=== PATIENT | female | born 1945 | race Caucasian/White ===

== ENCOUNTER 2018-03-18 12:51 | Emergency (ER) | payer MEDICARE, OTHER ==
[2018-03-18 14:00] LABS: Basophils % (A) 0 %; Eosinophils # (A) 0.1 k/uL (0-0.7); Eosinophils % (A) 1 %; HCT 37.8 % (34.0-46.0); HGB 12.2 gm/dL (11.4-16.0); Lymphocytes # (A) 1.3 k/uL (1.0-4.8); Lymphocytes % (A) 13 %; MCH 30.1 pg (25.0-35.0); MCHC 32.3 g/dL (31.0-37.0); MCV 93.2 fL (80.0-100.0); Mean Platelet Volume 6.9; Monocytes # (A) 0.4 k/uL (0-1.0); Monocytes % (A) 4 %; Neutrophils # (A) 7.8 k/uL (1.3-7.7); Neutrophils % (A) 80 %; Platelet Count 194 k/uL (150-450); RBC 4.06 m/uL (3.80-5.40); RDW 13.5 % (11.5-15.5); WBC 9.8 k/uL (3.8-10.6)
--- NOTE | 2018-03-18 14:04 | ED ---
General Adult HPI - General Chief complaint: Extremity Problem,Nontraumatic Stated complaint: lt leg swelling/pain Time Seen by Provider: 03/18/18 13:17 Source: patient, RN notes reviewed, old records reviewed Mode of arrival: ambulatory Limitations: no limitations - History of Present Illness Initial comments: 73-year-old female presenting for evaluation of pain and swelling in her left leg. Patient noted the swelling over the past 24 hours. She has no history DVT or PE. Denies fever or chills. Patient denies any trauma. Pain is from the calf to the upper thigh. - Related Data Home Medications Medication Instructions Recorded Confirmed [id number] 3 tab PO QAM 03/18/18 03/18/18 [Excedrin] Atorvastatin Calcium [Lipitor] 20 mg PO HS 03/18/18 03/18/18 Cholecalciferol [Vitamin D3] 1,000 unit PO DAILY 03/18/18 03/18/18 Cranberry Fruit Extract [Cranberry] 500 mg PO DAILY 03/18/18 03/18/18 Lisinopril [Zestril] 10 mg PO HS 03/18/18 03/18/18 Magnesium 200 mg PO DAILY 03/18/18 03/18/18 Multivitamins, Thera [Multivitamin 1 tab PO DAILY 03/18/18 03/18/18 (formulary)] Naproxen Sodium [Aleve] 220 mg PO DAILY 03/18/18 03/18/18 Sinus Medicine (Unknown Otc) 1 tab PO QAM 03/18/18 03/18/18 amLODIPine [Norvasc] 5 mg PO HS 03/18/18 03/18/18 Allergies Allergy/AdvReac Type Severity Reaction Status Date / Time No Known Allergies Allergy Verified 03/18/18 13:53 Review of Systems ROS Statement: Those systems with pertinent positive or pertinent negative responses have been documented in the HPI. ROS Other: All systems not noted in ROS Statement are negative. Past Medical History Past Medical History: Hyperlipidemia, Hypertension, Osteoarthritis (OA) History of Any Multi-Drug Resistant Organisms: None Reported Past Surgical History: Adenoidectomy, Appendectomy, Breast Surgery, Tonsillectomy, Tubal Ligation Past Psychological History: No Psychological Hx Reported Smoking Status: Former smoker Past Alcohol Use History: Rare Past Drug Use History: None Reported General Exam Limitations: no limitations General appearance: alert, in no apparent distress Head exam: Present: atraumatic, normocephalic Eye exam: Present: normal appearance, PERRL ENT exam: Present: normal exam Neck exam: Present: normal inspection. Absent: tenderness, meningismus Respiratory exam: Present: normal lung sounds bilaterally. Absent: respiratory distress, wheezes Cardiovascular Exam: Present: regular rate, normal rhythm GI/Abdominal exam: Present: soft. Absent: distended, tenderness Extremities exam: Present: tenderness (Swelling of the left lower extremity, ankle to hip, distal pulses intact.), pedal edema, calf tenderness, other Neurological exam: Present: alert, oriented X3, CN II-XII intact. Absent: motor sensory deficit Psychiatric exam: Present: normal affect, normal mood Skin exam: Present: warm, dry, intact. Absent: cyanosis, diaphoretic Course Vital Signs 03/18/18 03/18/18 13:09 14:40 Temperature 98.5 F Pulse Rate 88 77 Respiratory 20 18 Rate Blood Pressure 130/82 144/77 O2 Sat by Pulse 97 97 Oximetry - Reevaluation(s) Reevaluation #1: 03/18/18 16:[address] Perez from vascular surgery, recommended discussing case with, called for possible intervention. EKG Findings - EKG Comments: EKG Findings:: EKG: Normal sinus rhythm, no ST segment elevation or depression, rate of 78, AL interval 170, QRS duration 98, QTC 428 Medical Decision Making - Medical Decision Making 73-year-old female presenting with 24-hour history of left leg pain and swelling. Basic laboratory studies are obtained which are normal, normal CBC, normal CMP, normal lactic acid. Patient has ultrasound of the leg which is negative for DVT. No remains high clinical suspicion for occlusive process, CT of the abdomen and pelvis is obtained which does show DVT in the common and external iliac. Case discussed with vascular surgery on-call, recommended transfer for further evaluation treatment, case discussed with alena Delaney P[place], patient will be sent for thrombolysis. Case discussed with ER physician at [facility] Dr. Baird regarding transfer. - Lab Data Result diagrams: 03/18/18 13:37 03/18/18 13:37 Lab Results 03/18/18 03/18/18 03/18/18 Range/Units 13:37 13:37 13:37 WBC 9.8 (3.8-10.6) k/uL RBC 4.06 (3.80-5.40) m/uL Hgb 12.2 (11.4-16.0) gm/dL Hct 37.8 (34.0-46.0) % MCV 93.2 (80.0-100.0) fL MCH 30.1 (25.0-35.0) pg MCHC 32.3 (31.0-37.0) g/dL RDW 13.5 (11.5-15.5) % Plt Count 194 (150-450) k/uL Neutrophils % 80 % Lymphocytes % 13 % Monocytes % 4 % Eosinophils % 1 % Basophils % 0 % Neutrophils # 7.8 H (1.3-7.7) k/uL Lymphocytes # 1.3 (1.0-4.8) k/uL Monocytes # 0.4 (0-1.0) k/uL Eosinophils # 0.1 (0-0.7) k/uL Basophils # 0.0 (0-0.2) k/uL PT 9.5 (9.0-12.0) sec INR 1.0 (<1.2) APTT 22.5 (22.0-30.0) sec Sodium 140 (137-145) mmol/L Potassium 5.0 (3.5-5.1) mmol/L Chloride 105 (98-107) mmol/L Carbon Dioxide 24 (22-30) mmol/L Anion Gap 11 mmol/L BUN 13 (7-17) mg/dL Creatinine 0.75 (0.52-1.04) mg/dL Est GFR (CKD-EPI)AfAm >90 (>60 ml/min/1.73 sqM) Est GFR (CKD-EPI)NonAf 81 (>60 ml/min/1.73 sqM) Glucose 99 (74-99) mg/dL Plasma Lactic Acid Kye (0.7-2.0) mmol/L Calcium 9.8 (8.4-10.2) mg/dL Total Bilirubin 1.0 (0.2-1.3) mg/dL AST 27 (14-36) U/L ALT 15 (9-52) U/L Alkaline Phosphatase 95 (38-126) U/L Troponin I (0.000-0.034) ng/mL NT-Pro-B Natriuret Pep pg/mL Total Protein 7.9 (6.3-8.2) g/dL Albumin 4.4 (3.5-5.0) g/dL 03/18/18 03/18/18 03/18/18 Range/Units 13:37 13:37 15:30 WBC (3.8-10.6) k/uL RBC (3.80-5.40) m/uL Hgb (11.4-16.0) gm/dL Hct (34.0-46.0) % MCV (80.0-100.0) fL MCH (25.0-35.0) pg MCHC (31.0-37.0) g/dL RDW (11.5-15.5) % Plt Count (150-450) k/uL Neutrophils % % Lymphocytes % % Monocytes % % Eosinophils % % Basophils % % Neutrophils # (1.3-7.7) k/uL Lymphocytes # (1.0-4.8) k/uL Monocytes # (0-1.0) k/uL Eosinophils # (0-0.7) k/uL Basophils # (0-0.2) k/uL PT (9.0-12.0) sec INR (<1.2) APTT (22.0-30.0) sec Sodium (137-145) mmol/L Potassium (3.5-5.1) mmol/L Chloride (98-107) mmol/L Carbon Dioxide (22-30) mmol/L Anion Gap mmol/L BUN (7-17) mg/dL Creatinine (0.52-1.04) mg/dL Est GFR (CKD-EPI)AfAm (>60 ml/min/1.73 sqM) Est GFR (CKD-EPI)NonAf (>60 ml/min/1.73 sqM) Glucose (74-99) mg/dL Plasma Lactic Acid Kye 1.0 (0.7-2.0) mmol/L Calcium (8.4-10.2) mg/dL Total Bilirubin (0.2-1.3) mg/dL AST (14-36) U/L ALT (9-52) U/L Alkaline Phosphatase (38-126) U/L Troponin I <0.012 (0.000-0.034) ng/mL NT-Pro-B Natriuret Pep 69 pg/mL Total Protein (6.3-8.2) g/dL Albumin (3.5-5.0) g/dL Critical Care Time Critical Care Time: Yes Total Critical Care Time: 35 Disposition Clinical Impression: Deep vein thrombosis of lower extremity Disposition: OTHER INSTITUTION NOT DEFINED Condition: Stable Is patient prescribed a controlled substance at d/c from ED?: No Referrals: Jayy Ohara MD [Primary Care Provider] - 1-2 days Time of Disposition: 16:05 - Out of Hospital Transfer - Req. Specs Out of Hospital Transfer - Requested Specifics: Other Emergency Center ( Transfer to [facility])
[2018-03-18 14:06] LABS: Albumin 4.4 g/dL (3.5-5.0); Anion Gap 11 mmol/L; Blood Urea Nitrogen 13 mg/dL (7-17); Calcium 9.8 mg/dL (8.4-10.2); Carbon Dioxide 24 mmol/L (22-30); Chloride 105 mmol/L (98-107); Glucose 99 mg/dL (74-99); Sodium 140 mmol/L (137-145); Total Protein 7.9 g/dL (6.3-8.2)
[2018-03-18 14:09] LABS: ALT 15 U/L (9-52); AST 27 U/L (14-36); Alkaline Phosphatase 95 U/L (38-126)
[2018-03-18 14:14] LABS: Partial Thromboplastin Time 22.5 sec (22.0-30.0); Prothrombin Time 9.5 sec (9.0-12.0)
[2018-03-18 14:40] VITALS: RESP 18
--- NOTE | 2018-03-18 14:43 | US ---
EXAMINATION TYPE: US venous doppler duplex LE LT DATE OF EXAM: 03/18/2018 2:12 PM COMPARISON: NONE CLINICAL HISTORY: Pain. Swelling left leg SIDE PERFORMED: Left TECHNIQUE: The lower extremity deep venous system is examined utilizing real time linear array sonog marly with graded compression, doppler sonography and color-flow sonography. VESSELS IMAGED: External Iliac Vein (EIV) Common Femoral Vein Deep Femoral Vein Greater Saphenous Vein * Femoral Vein Popliteal Vein Small Saphenous Vein * Proximal Calf Veins (* superficial vessels) Left Leg: Appears negative for DVT. Rouleaux flow visualized IMPRESSION: 1. No diagnostic evidence of DVT.
[2018-03-18] MEDS ORDERED: HEPARIN SODIUM,PORCINE 5,000 UNIT/ML 1 ML VIAL IV ONE (15:43)
[2018-03-18] MEDS ORDERED: HEPARIN SODIUM,PORCINE 5,000 UNIT/ML 1 ML VIAL IV PRN (15:43)
[2018-03-18] MEDS ORDERED: HEPARIN SOD,PORK IN 0.45% NACL 25,000 UNIT in 0.45% NACL 1 500ML.BAG IV SCH (15:45)
--- NOTE | 2018-03-18 15:48 | CT ---
EXAMINATION TYPE: CT abdomen pelvis w con DATE OF EXAM: 03/18/2018 HISTORY: Left leg swelling. CT DLP: 1088.5mGycm Automated Exposure Control for Dose Reduction was Utilized. CONTRAST: CT scan of the abdomen and pelvis is performed with IV Contrast, patient injected with 100 mL of Isov ue 300. COMPARISON: None. FINDINGS: LUNG BASES: No significant abnormality is appreciated. LIVER/GB: Gallbladder is elongated although not hydropic. This measures 9.0 cm. No cholelithiasis is seen. Within the liver there are 4 subcentimeter left hepatic hypoattenuated lesions that are too sma ll to accurately characterize and at least 2 within the right hepatic lobe. No intrahepatic biliary d uctal dilatation. PANCREAS: No significant abnormality is seen. SPLEEN: No significant abnormality is seen. ADRENALS: No significant abnormality is seen. KIDNEYS: Renal sinus cyst is seen on the right. Otherwise the kidneys are unremarkable. No hydronephr osis. BOWEL: No significant abnormality is seen. UTERUS/ADNEXA: No gross abnormality seen. LYMPH NODES: No greater than 1cm abdominal or pelvic lymph nodes are appreciated. OSSEOUS STRUCTURES: No significant abnormality is seen. OTHER: Fascial thickening and scant free fluid along the left inguinal region is seen. Additionally t here is enlargement of the left external iliac vein and some high density in the femoral vein with en largement of the left common iliac vein. There is very minimal compression of the left external iliac vein via the right common iliac artery. Therefore May Thurner syndrome is a possibility although unl ikely. There is fat stranding surrounding the left common iliac vein seen from axial images [address] through images 83. Linear high density is seen on coronal images 40 through 46 within the left ext ernal iliac vein and femoral vein. There is an infrarenal abdominal aortic aneurysm measuring 3.1 x 2.8 x 3.3 cm without extent into the common iliac arteries. Within this aneurysm there is moderate calcific and noncalcific atheromatous plaquing. Within this atheromatous plaquing there is focal ulceration and coronal image 43 (penetrati ng atheromatous ulcer). Is present on axial image 44. IMPRESSION: 1. Findings most compatible with deep venous thrombosis of the left common iliac and external iliac v ein above the level of the previously performed ultrasound. Stranding inflammatory change may be on t he basis of deep venous thrombosis or less likely vasculitis. There is high density within the vein t hat may represent blood flow surrounding the clot or less likely foreign body. Correlate with any rec ent venous procedure. 2. Infrarenal abdominal aortic aneurysm with penetrating atheromatous ulcer. Stranding within the left groin and small amount of free fluid of unknown etiology. Possible recent i nflammatory change such as recent colitis or recent ovarian cyst rupture could produce this finding. Some density is seen within the left common iliac vein and left femoral vein. Correlate with ultrasou nd.
[2018-03-18 17:20] VITALS: BP 152/80; PULSE 80; TEMP 97.7
== END 2018-03-18 17:20 | disposition short-term general hospital (02) ==
LOC: EC 12:51
DX: I82.422 Acute embolism and thrombosis of left iliac vein (principal); E78.5 Hyperlipidemia, unspecified; I10 Essential (primary) hypertension; M19.90 Unspecified osteoarthritis, unspecified site; Z87.891 Personal history of nicotine dependence; Z79.1 Long term (current) use of non-steroidal anti-inflammatories (NSAID); Z79.82 Long term (current) use of aspirin; Z79.899 Other long term (current) drug therapy
CPT/HCPCS: 36415; 93005; 83880; 80053; 83605; 84484; 85025; 85610; 85730; 87040; 93971; 74177; 99291; 96365; 96376; J1644 ×2; Q9967

== ENCOUNTER → 2020-04-13 | Outpatient (CLI) | payer MEDICARE, OTHER ==
--- NOTE | 2020-04-16 09:32 | MM ---
Reason for exam: screening (asymptomatic). Last mammogram was performed 14 years and 7 months ago. History: Patient is postmenopausal. Family history of premenopausal breast cancer in sister. Excisional biopsy of the right breast, 1975. Excisional biopsy of the left breast, 1974. Took estrogen for 6 months beginning at age 56. Physical Findings: A clinical breast exam by your physician is recommended on an annual basis and results should be correlated with mammographic findings. MG Screening Mammo w CAD Bilateral CC and MLO view(s) were taken. Prior study comparison: March 20, 2017, mammogram, performed at [facility]. The breast tissue is extremely dense which could obscure a lesion on mammography. Benign calcifications. No significant changes when compared with prior studies. ASSESSMENT: Benign, BI-RAD 2 RECOMMENDATION: Routine screening mammogram of both breasts in 1 year.
== END | disposition home or self-care (01) ==
LOC: RADMAMWWP 10:40
PROVIDERS: ATTEND Family Medicine
DX: Z12.31 Encounter for screening mammogram for malignant neoplasm of breast (principal)
CPT/HCPCS: 77067

== ENCOUNTER 2020-05-29 10:57 | Emergency (ER) | payer MEDICARE, OTHER ==
[2020-05-29 11:04] VITALS: RESP 18
[2020-05-29] MEDS ORDERED: SODIUM CHLORIDE 0.9% 500 ML 500 ML IV ONE (11:17)
--- NOTE | 2020-05-29 11:25 | ED ---
Lower Extremity Injury HPI - General Chief Complaint: Extremity Injury, Lower Stated Complaint: groin pain Time Seen by Provider: 05/29/20 11:04 Source: patient Mode of arrival: ambulatory Limitations: no limitations - History of Present Illness Initial Comments: 75yo female presenting today for cc of LLQ pain. pt states that she lifted something 5 days ago she states she noted no pain at that time. pt states that 2 days later she had LLQ cramping abdominal pain, she thought it was gas. pt states that there is an incision for her graft below the are of tenderness and patient states that she is concerned something could also be wrong with the graft. pt denies leg pain, back pain, nausea, vomiting, diarrhea, fevers, constipation. pt denies additional complaints. upon arrival patient appears well nontoxic - Related Data Home Medications Medication Instructions Recorded Confirmed [id number] [phone] 2 tab PO QAM 03/18/18 05/29/20 [Excedrin] Atorvastatin Calcium [Lipitor] 20 mg PO HS 03/18/18 05/29/20 Cholecalciferol [Vitamin D3] 1,000 unit PO DAILY 03/18/18 05/29/20 Magnesium 200 mg PO DAILY 03/18/18 05/29/20 Multivitamins, Thera [Multivitamin 1 tab PO DAILY 03/18/18 05/29/20 (formulary)] Sinus Medicine (Unknown Otc) 1 tab PO QAM 03/18/18 05/29/20 amLODIPine [Norvasc] 5 mg PO HS 03/18/18 05/29/20 lisinopriL [Zestril] 10 mg PO HS 03/18/18 05/29/20 HYDROcodone/APAP 5-325MG [[place] 1 tab PO BID PRN 05/29/20 05/29/20 5-325] diphenhydrAMINE [Benadryl] 50 mg PO DAILY 05/29/20 05/29/20 Previous Rx's Medication Instructions Recorded Amoxicillin/Potassium Clav 1 tab PO Q12HR 7 Days #14 tab 05/29/20 [Augmentin 875-125 Tablet] Allergies Allergy/AdvReac Type Severity Reaction Status Date / Time No Known Allergies Allergy Verified 05/29/20 12:01 Review of Systems ROS Statement: Those systems with pertinent positive or pertinent negative responses have been documented in the HPI. ROS Other: All systems not noted in ROS Statement are negative. Past Medical History Past Medical History: Hyperlipidemia, Hypertension, Osteoarthritis (OA) History of Any Multi-Drug Resistant Organisms: None Reported Past Surgical History: Adenoidectomy, Appendectomy, Breast Surgery, Tonsillectomy, Tubal Ligation Additional Past Surgical History / Comment(s): vein stent Past Psychological History: No Psychological Hx Reported Smoking Status: Former smoker Past Alcohol Use History: Rare Past Drug Use History: None Reported General Exam - General Exam Comments Initial Comments: General: The patient is awake and alert, in no distress Eye: Pupils are equal, round and reactive to light, extra-ocular movements are intact. No nystagmus. There is normal conjunctiva bilaterally. No signs of icterus. Cardiovascular: There is a regular rate and rhythm. No murmur, rub or gallop is appreciated. Respiratory: Lungs are clear to auscultation, respirations are non-labored, b reath sounds are equal. No wheezes, stridor, rales, or rhonchi. Gastrointestinal: No obvious ventral hernia near area of tenderness, there is no tenderness at scar line. no groin pain, there is LLQ abdominal pain to palpation,Soft, non-distended, non-tender RLQ or upper abdomen, abdomen without masses or organomegaly noted. There is no rebound or guarding present. Musculoskeletal: Normal ROM, no tenderness. Strength 5/5. Sensation intact. R adial and DP pulses equal bilaterally 2+. Neurological: A&O x 3. CN II-XII intact grossly, There are no obvious motor or sensory deficits. Coordination appears grossly intact. Speech is normal. Skin: Skin is warm and dry and no rashes or lesions are noted. Psychiatric: Cooperative, appropriate mood & affect, normal judgment. Limitations: no limitations Course Vital Signs 05/29/20 05/29/20 05/29/20 11:00 12:23 12:52 Temperature 98.8 F 98.1 F Pulse Rate 82 85 76 Respiratory 18 18 18 Rate Blood Pressure 171/82 131/92 137/73 O2 Sat by Pulse 98 96 97 Oximetry Medical Decision Making - Medical Decision Making Labs stable. afebrile. localized LLQ. described as cramping, concerned bcause near scar for vascular surgery. pt CT revealed an uncomplicated diverticulitis which was top ddx given age/location of pain/description. pt will be discharge with GI f/u and oral antibiotics. Dr. Berumen is agreeable to this care plan. - Lab Data Result diagrams: 05/29/20 11:23 05/29/20 11:23 Lab Results 05/29/20 05/29/20 05/29/20 Range/Units 11:23 11:23 11:27 WBC 9.1 (3.8-10.6) k/uL RBC 4.71 (3.80-5.40) m/uL Hgb 14.1 (11.4-16.0) gm/dL Hct 42.7 (34.0-46.0) % MCV 90.5 (80.0-100.0) fL MCH 30.0 (25.0-35.0) pg MCHC 33.1 (31.0-37.0) g/dL RDW 13.7 (11.5-15.5) % Plt Count 277 (150-450) k/uL MPV 6.7 Neutrophils % 67 % Lymphocytes % 26 % Monocytes % 4 % Eosinophils % 1 % Basophils % 0 % Neutrophils # 6.1 (1.3-7.7) k/uL Lymphocytes # 2.4 (1.0-4.8) k/uL Monocytes # 0.4 (0-1.0) k/uL Eosinophils # 0.1 (0-0.7) k/uL Basophils # 0.0 (0-0.2) k/uL Sodium 139 (137-145) mmol/L Potassium 5.0 (3.5-5.1) mmol/L Chloride 104 (98-107) mmol/L Carbon Dioxide 26 (22-30) mmol/L Anion Gap 9 mmol/L BUN 14 (7-17) mg/dL Creatinine 0.82 (0.52-1.04) mg/dL Est GFR (CKD-EPI)AfAm 82 (>60 ml/min/1.73 sqM) Est GFR (CKD-EPI)NonAf 71 (>60 ml/min/1.73 sqM) Glucose 100 H (74-99) mg/dL Calcium 10.1 (8.4-10.2) mg/dL Total Bilirubin 0.5 (0.2-1.3) mg/dL AST 21 (14-36) U/L ALT 25 (4-34) U/L Alkaline Phosphatase 105 (38-126) U/L Total Protein 8.1 (6.3-8.2) g/dL Albumin 4.5 (3.5-5.0) g/dL Amylase 59 (30-110) U/L Lipase 80 (23-300) U/L Urine Color Light Yellow Urine Appearance Clear (Clear) Urine pH 6.5 (5.0-8.0) Ur Specific [place] 1.013 (1.001-1.035) Urine Protein Negative (Negative) Urine Glucose (UA) Negative (Negative) Urine Ketones Negative (Negative) Urine Blood Trace H (Negative) Urine Nitrite Negative (Negative) Urine Bilirubin Negative (Negative) Urine Urobilinogen <2.0 (<2.0) mg/dL Ur Leukocyte Esterase Moderate H (Negative) Urine RBC 2 (0-5) /hpf Urine WBC 6 H (0-5) /hpf Ur Squamous Epith Cells 1 (0-4) /hpf Urine Mucus Rare H (None) /hpf Disposition Clinical Impression: Diverticulitis, LLQ pain Disposition: HOME SELF-CARE Condition: Good Instructions (If sedation given, give patient instructions): Diverticulitis (ED), Diverticulitis Diet (ED) Additional Instructions: Please use medication as discussed. Please follow-up with family doctor in the next 2 days, please follow-up with gastroenterology in the next 1 week. Please return to emergency room if the symptoms increase or worsen or for any other concerns. Prescriptions: Amoxicillin/Potassium Clav [Augmentin 875-125 Tablet] 1 tab PO Q12HR 7 Days #14 tab Is patient prescribed a controlled substance at d/c from ED?: No Referrals: Jayy Ohara MD [Primary Care Provider] - 1-2 days Etienne Leavitt MD [STAFF PHYSICIAN] - 1-2 days Time of Disposition: 12:39
[2020-05-29] MEDS ORDERED: SODIUM CHLORIDE 0.9% 1,000 ML IV SCH (11:30)
[2020-05-29 11:35] LABS: Basophils % (A) 0 %; Eosinophils # (A) 0.1 k/uL (0-0.7); Eosinophils % (A) 1 %; HCT 42.7 % (34.0-46.0); HGB 14.1 gm/dL (11.4-16.0); Lymphocytes # (A) 2.4 k/uL (1.0-4.8); Lymphocytes % (A) 26 %; MCHC 33.1 g/dL (31.0-37.0); MCV 90.5 fL (80.0-100.0); Mean Platelet Volume 6.7; Monocytes # (A) 0.4 k/uL (0-1.0); Monocytes % (A) 4 %; Neutrophils # (A) 6.1 k/uL (1.3-7.7); Neutrophils % (A) 67 %; Platelet Count 277 k/uL (150-450); RBC 4.71 m/uL (3.80-5.40); RDW 13.7 % (11.5-15.5); WBC 9.1 k/uL (3.8-10.6)
[2020-05-29 11:42] LABS: Albumin 4.5 g/dL (3.5-5.0); Calcium 10.1 mg/dL (8.4-10.2); Total Bilirubin 0.5 mg/dL (0.2-1.3); Total Protein 8.1 g/dL (6.3-8.2)
[2020-05-29 11:57] LABS: Appearance,Urine Clear (Clear); Bilirubin,Urine Negative (Negative); Blood,Urine Trace (Negative); Color,Urine Light Yellow; Glucose,Urine (UA) Negative (Negative); Ketones,Urine Negative (Negative); Leukocyte Esterase,Urine Moderate (Negative); Mucus,Urine Rare /hpf; Nitrite,Urine Negative (Negative); PH, Urine 6.5 (5.0-8.0); Protein,Urine Negative (Negative); RBC,Urine 2 /hpf (0-5); Specific Gravity,Urine 1.013 (1.001-1.035); Squamous Epithelial Cell,Urine 1 /hpf (0-4); Urobilinogen,Urine <2.0 mg/dL (<2.0); WBC,Urine 6 /hpf (0-5)
--- NOTE | 2020-05-29 12:36 | CT ---
EXAMINATION TYPE: CT abdomen pelvis w con DATE OF EXAM: 05/29/2020 HISTORY: Lt groin pain after lifting injury [address] DLP: 1336.9mGycm Automated Exposure Control for Dose Reduction was Utilized. CONTRAST: CT scan of the abdomen and pelvis is performed without oral but with IV Contrast, patient injected w ith 100 mL of Isovue 300. COMPARISON: CT abdomen and pelvis March 18, 2018 FINDINGS: LUNG BASES: No significant abnormality is appreciated. LIVER/GB: Occasional subcentimeter low dense lesions scattered throughout the left hepatic lobe is to o small to further characterize presumed benign. PANCREAS: No significant abnormality is seen. SPLEEN: No significant abnormality is seen. ADRENALS: No significant abnormality is seen. KIDNEYS: Symmetric cortical medullary uptake and excretion without concerning renal mass or hydroneph rosis. There is simple appearing thin-walled parapelvic cyst right kidney measuring 2.1 cm axial imag e 30 redemonstrated. BOWEL: No suspicious smaller large bowel dilatation. Some distal colonic diverticula. Mild ill-defin ed fluid and fat stranding proximal sigmoid colon on axial image 60. No free air. No well-formed flui d collection. UTERUS/ADNEXA: Anteverted uterus. LYMPH NODES: No greater than 1cm abdominal or pelvic lymph nodes are appreciated. OSSEOUS STRUCTURES: No significant abnormality is seen. OTHER: Small focal AAA up to 3.1 cm transversely axial image 34 redemonstrated. There is a stent josh t in the left common iliac vein on current study. IMPRESSION: New mild uncomplicated acute diverticulitis proximal left sigmoid colon centered in the a nterior left mid pelvis.
[2020-05-29] MEDS ORDERED: AMOXIC-POT CLAV 875MG STARTER PACK 2 TAB BTL PO STA (12:38)
[2020-05-29 12:53] VITALS: BP 137/73; PULSE 76; TEMP 98.1
== END 2020-05-29 12:53 | disposition home or self-care (01) ==
LOC: EC 10:57
DX: K57.32 Diverticulitis of large intestine without perforation or abscess without bleeding (principal); I10 Essential (primary) hypertension; E78.5 Hyperlipidemia, unspecified; Z79.82 Long term (current) use of aspirin; Z79.899 Other long term (current) drug therapy; Z87.891 Personal history of nicotine dependence
CPT/HCPCS: 36415; 80053; 82150; 83690; 85025; 81001; 74177; 99284; 96360; Q9967